=== PATIENT | male | born 1960 | race Caucasian/White ===

== ENCOUNTER 2016-10-26 06:15 | Day surgery (SDC) | payer OTHER ==
[2016-10-26] MEDS ORDERED: ceFAZolin 2 GM/50 ML 50 ML IV ONE (06:42)
[2016-10-26] MEDS ORDERED: LACTATED RINGERS 1,000 ML IV ONE ×3 (07:11→11:28)
[2016-10-26] MEDS ORDERED: BUPIVACAINE 0.5% PF 30 ML VIAL SUBQ ONE (08:30)
--- NOTE | 2016-10-26 10:22 | OPERATIVE REPORT ---
Operative Report - General Procedure Date: 10/26/16 Planned Procedure: Bilateral TEP inguinal herniorrhaphy Pre-Op Diagnosis: Bilateral inguinal hernia Post Op Diagnosis: Bilateral indirect inguinal hernia - Procedure Note Primary Surgeon: Rebecca Secondary Surgeon: Shannon Anesthesia Provider: Conner Rodriguez Anesthesia Technique: General ET tube, Local (30 mL 1/2% marcaine) Estimated Blood Loss (in cc): 5 Drain/Tube Type: negative: Abraham drain, Constavac drain, Hemovac, Lyndon Bronson flat drain, Lyndon Bronson round drain, Lyndon Bronson drain, Lumbar drain, Nephrostomy, [place], Pig tail catheter, Self contained, T-tube, Other Complications: None but fluids = 1300 mL and urine output = 100 mL. - Other Other Information/Narrative: OPERATIVE DESCRIPTION/REPORT: After verbal and written informed consent was obtained detailing the risks of infection, bleeding requiring transfusion with its risks, nerve injury, and , and after I met with the patient confirming the surgery and the site of the surgery, the patient was brought to the operative suite and placed supine on the operating table. Great care was taken to avoid pressure points to prevent pressure necrosis or nerve injury. Monitoring devices were applied along with TEDs and pneumatic compressive stockings (to prevent DVT). The patient received preoperative antibiotics for surgical prophylaxis. Conner Rodriguez sedated and induced general anesthesia and provided anesthesia care for the entirety of the case. The patient was prepped and draped in the usual sterile manner. With the patient draped my initials were clearly visible. A "time in" then confirmed that the paitient was identified with 3 identifiers ( name, date and medical record number), the history and physical was in the chart, the signed consent confirming the procedure was in the chart, the patient was in the correct position, the aforementioned prophylactic measures were in place or given, we had the correct personnel and equipment to complete the procedure and that anesthesia, surgery and nursing were given an opportunity to express any concerns. With the agreement of everyone in the room , we proceeded with the operation. A transverse skin incision was made below and to the left of the umbilicus to a length of approximately 3 cm. The incision was carried through the subcutaneous tissue. Bleeders were cauterized. The right rectus sheath was identified and incised lateral to the midline. The preperitoneal space was then developed following insertion of a Spacemaker balloon, which was inflated under direct vision. The balloon would not inflate fully on the right hand side and in order to get the right side of the balloon to inflate additional pressure was used to the point where the balloon popped but it still did not dissect the right hand side. Following removal of the Spacemaker balloon, a #10 trocar was placed in the preperitoneal space and the preperitoneal space was insufflated with CO2 to a steady state pressure of 15 mmHg. A 10 mm 30 degree laparoscope was inserted in the preperitoneal space. Two #5 trocars were placed in the lower midline under direct vision and without incident. Landmarks including symphysis pubis, right John ligament and left inferior epigastric vessels were identified. Dissection was then continued lateral to the transverse abdominis muscle. The internal ring was then explored for the presence of the indirect hernia sac and this was reduced under direct vision with traction and counter-traction. Exploration of the medial space showed a medial defect suggesting the presence of an early or small direct hernia. A large size Bard 3D mesh (see operative record for Lot# and reference #) was placed in the preperitoneal space and anchored to the symphysis pubis with a tacker. The mesh covered the internal ring as well as the potential direct inguinal hernia site. The right hand side was addressed. Another Spacemaker balloon was placed under direct vision in an effort to dissect the right hand side. Despite this the right hand side was not adequately dissected. In attempting to dissect the right hand side the peritoneum was entered and the pneumoperitoneum was closing my operative site and I placed a Veress needle in the abdomen in order to decompress the pneumoperitoneum. Finally with some traction and counter- traction I was able to see the cord contents and the potential direct hernia site. The indirect sac was reduced and examination did not reveal a direct hernia. A medium size Bard 3D mesh (see operative record for Lot# and reference #) was placed in the preperitoneal space and anchored to the symphysis pubis with a tacker. The mesh covered the internal ring as well as the potential direct inguinal hernia site. I used a medium since the decreased space did not allow for placement of a large. 10 mL of 1/2% Marcaine was injected into the preperitoneal space and then remaining 20 mL at all three incisions. The preperitoneal space was then deflated and during the deflation the mesh was watched to ensure that it was sandwiched nicely in place and did not change position. All trocars were withdrawn. The Veress needle was removed. The defect in the rectus sheath was closed with a [id number] 0 Vicryl suture. The skin incisions were closed with subcuticular 4-0 Monocryl suture. The prep was washed off and Mastisol and Steristrips were applied at all the incisions. At this point a time out was performed that confirmed that all the counts were correct, the procedure that was performed, the blood loss, the IV fluids administered, and the patients condition. The prep was washed off and Benzoin and Steristrips were applied. Having tolerated the procedure well, the patient was subsequently extubated and taken to recovery room in good and stable condition.
[2016-10-26] MEDS ORDERED: fentaNYL 100 MCG/2 ML VIAL ONE (10:53)
[2016-10-26] MEDS ORDERED: oxyCOD/ACETAMIN 5 MG/325 MG TABLET PO ONE (12:23)
[2016-10-26 13:23] VITALS: BP 112/69
== END 2016-10-26 06:16 | disposition home or self-care (01) ==
LOC: SDS 06:15
PROVIDERS: ATTEND Surgery
PROC: 0YUA4JZ Supplement Bilateral Inguinal Region with Synthetic Substitute, Percutaneous Endoscopic Approach (ICD-10-PCS; principal; 2016-10-26 07:30)
DX: K40.20 Bilateral inguinal hernia, without obstruction or gangrene, not specified as recurrent (principal)
CPT/HCPCS: 49650; A9270; C1781; J0690; J7120

== ENCOUNTER 2016-10-27 17:09 | Emergency (ER) | payer OTHER ==
--- NOTE | 2016-10-27 18:44 | ED Physician Documentation ---
PD HPI DYSPNEA - Stated complaint Stated Complaint: SOA/1 DAY POST OP - Chief complaint Chief Complaint: General - History obtained from History obtained from: Patient - History of Present Illness Timing - onset: Yesterday (had hernia repair laparoscopically yesterday here by Dr. Aguilar. had throat soreness and some cough as well as some dysuria last night and into today. Feeling of some dyspnea with cough today. Has swelling left scrotum. Incisions are hurting. No vomiting.) Timing - details: Waxing and waning Associated symptoms: Cough (mild). No: Fever, Palpitations, Bilateral edema Recently seen: Surgery (hernia repair yesterday) Review of Systems Constitutional: denies: Fever, Chills Throat: reports: Sore throat Cardiac: denies: Chest pain / pressure Respiratory: reports: Dyspnea, Cough. denies: Wheezing GI: reports: Abdominal Pain (at incisions and lower abd), Nausea. denies: Vomiting, Hematemesis : reports: Dysuria (some hurting with urination, though better today than yesterday.). denies: Hematuria PD PAST MEDICAL HISTORY - Past Medical History Cardiovascular: None, High cholesterol Respiratory: None Endocrine/Autoimmune: None GI: None, GERD : None HEENT: None Psych: None Musculoskeletal: None Derm: Eczema - Past Surgical History HEENT: Tonsil/Adenoidectomy - Present Medications Home Medications: Ambulatory Orders Medication Instructions Recorded Confirmed Fluticasone [Flonase] 1 sprays EDILSON BID 12/22/12 10/27/16 Simvastatin 20 mg PO DAILY 12/22/12 10/27/16 Omeprazole [PriLOSEC] 20 mg PO DAILY 12/13/13 10/27/16 Flunisolide [Aerospan] 8.9 gm IH DAILY 10/15/16 10/27/16 oxyCODONE/ACET 5/325 [Percocet 5 1 tab PO .FREQ 10/27/16 10/27/16 mg/325 mg] - Allergies Allergies/Adverse Reactions: Allergies Allergy/AdvReac Type Severity Reaction Status Date / Time No Known Drug Allergies Allergy Verified 10/27/16 17:14 PD ED PE NORMAL - Vitals Vital signs reviewed: Yes - General General: Alert and oriented X 3, Well developed/nourished - HEENT HEENT: Moist mucous membranes, Pharynx benign - Neck Neck: Supple, no meningeal sign, No adenopathy - Cardiac Cardiac: RRR, No murmur - Respiratory Respiratory: Clear bilaterally - Abdomen Abdomen: Soft, Non distended, Other (surgical site lower abdomen without redness. ) - Male Male : Other (some swelling left scrotum) - Rectal Rectal: Deferred - Back Back: No CVA TTP - Derm Derm: Normal color, Warm and dry - Extremities Extremities: No edema, No calf tenderness / cord - Neuro Neuro: Alert and oriented X 3, No motor deficit, Normal speech Results - Vitals Vitals: Vital Signs - 24 hr 10/27/16 10/27/16 10/27/16 17:12 18:55 19:41 Temperature 36.6 C 37.2 C Heart Rate 75 70 65 Respiratory 20 18 18 Rate Blood Pressure 154/89 H 151/88 H O2 Saturation 97 96 Oxygen O2 Source Room air PD MEDICAL DECISION MAKING - ED course Complexity details: considered differential (his symptoms seem to relate to operative process - some sore throat and cough from breathing tube, mild dysuria from the armstrong that was in. Lungs are clear. He does feel some better with neb treatment. Has scrotal hematoma and this is hurting him. ), d/w patient Departure - Departure Disposition: 01 Home, Self Care Clinical Impression: Dysuria, Post-op pain Dyspnea Qualifiers: Dyspnea type: shortness of breath Qualified Code(s): R06.02 - Shortness of breath Condition: Stable Record reviewed to determine appropriate education?: Yes Instructions: ED Dyspnea Shortness of Breath Follow-Up: Cami Cook DO [Primary Care Provider] - Alexis Fernandez MD [Provider Admit Priv/Credential] - Comments: Use the Albuterol inhaler 2-3 puffs as needed for dyspnea/cough/congestion. Drink lots of fluids. Pain meds as needed. Recheck if persistent symptoms after couple of days, sooner if other symptoms or worsening. Discharge Date/Time: 10/27/16 19:43
[2016-10-27] MEDS ORDERED: LIDOCAINE VISCOUS 2% 15 ML UDC MM STA (18:46)
[2016-10-27] MEDS ORDERED: MAG HYDROX/AL HYDROX/SIMETH 30 ML UDC PO STA (18:46)
[2016-10-27] MEDS ORDERED: LEVALBUTEROL 1.25 MG INH STA (18:46)
[2016-10-27] MEDS ORDERED: PHENAZOPYRIDINE 100 MG TABLET PO STA (18:47)
[2016-10-27] MEDS ORDERED: MAG HYDROX/AL HYDROX/SIMETH 30 ML UDC ONE (18:50)
[2016-10-27] MEDS ORDERED: PHENAZOPYRIDINE 100 MG TABLET PO ONE (18:50)
[2016-10-27] MEDS ORDERED: LIDOCAINE VISCOUS 2% 15 ML UDC MM ONE (18:50)
[2016-10-27] MEDS ORDERED: LEVALBUTEROL 1.25 MG INH ONE (18:55)
[2016-10-27] MEDS ORDERED: SODIUM CHLORIDE INHALATION 3 ML NEB ONE (18:55)
[2016-10-27] MEDS ORDERED: ALBUTEROL 8 GM INHALER INH STA (19:15)
[2016-10-27] MEDS ORDERED: ALBUTEROL 18 GM INHALER INH ONE (19:18)
[2016-10-27 19:42] VITALS: BP 151/88
== END 2016-10-27 19:43 | disposition home or self-care (01) ==
LOC: ED 17:09
DX: G89.18 Other acute postprocedural pain (principal); R10.30 Lower abdominal pain, unspecified; R06.02 Shortness of breath; R05 Cough; R07.0 Pain in throat; R30.0 Dysuria; S30.22XA Contusion of scrotum and testes, initial encounter; Y83.8 Other surgical procedures as the cause of abnormal reaction of the patient, or of later complication, without mention of misadventure at the time of the procedure
CPT/HCPCS: 94640; 94664; 99282; 99283; A9270

== ENCOUNTER → 2018-03-27 | Outpatient (CLI) | payer OTHER ==
[2018-03-27 19:13] LABS: BASOPHILS # (AUTO) 0.1 10^3/uL (0.0-0.1); BASOPHILS % (AUTO) 1.3 %; EOSINOPHILS # (AUTO) 0.2 10^3/uL (0.0-0.7); EOSINOPHILS % (AUTO) 2.9 %; HGB - HEMOGLOBIN 14.6 g/dL (14.0-18.0); LYMPHOCYTES # (AUTO) 1.7 10^3/uL (1.5-3.5); LYMPHOCYTES % (AUTO) 30.7 %; MEAN CORPUSCULAR HEMOGLOBIN 29.9 pg (27.0-31.0); MEAN CORPUSCULAR HGB CONC 33.6 g/dL (32.0-36.0); MEAN CORPUSCULAR VOLUME 89.1 fL (80.0-94.0); MEAN PLATELET VOLUME 7.7 fL (7.4-11.4); MONOCYTES # (AUTO) 0.5 10^3/uL (0.0-1.0); MONOCYTES % (AUTO) 8.8 %; NEUTROPHILS # (AUTO) 3.2 10^3/uL (1.5-6.6); NEUTROPHILS % (AUTO) 56.3 %; PLT - PLATELET COUNT 277 10^3/uL (130-450); RED BLOOD COUNT 4.88 10^6/uL (4.70-6.10); RED CELL DISTRIBUTION WIDTH 13.8 % (12.0-15.0); WHITE BLOOD COUNT 5.7 x10^3/uL (4.8-10.8)
[2018-03-27 19:36] LABS: ALBUMIN 4.4 g/dL (3.2-5.5); ALBUMIN/GLOBULIN RATIO 1.6 (1.0-2.2); ALKALINE PHOSPHATASE 52 IU/L (42-121); ALT ALANINE AMINOTRANSFERASE 31 IU/L (10-60); AST ASPARTATE AMINOTRANSFERASE 25 IU/L (10-42); BILIRUBIN,TOTAL 0.7 mg/dL (0.2-1.0); BUN - BLOOD UREA NITROGEN 18 mg/dL (6-20); CARBON DIOXIDE - CO2 28 mmol/L (21-32); CHLORIDE 102 mmol/L (101-111); CHOL/HDL RATIO 4.7 (<5.0); CHOLESTEROL 219 mg/dL; CREATININE 0.9 mg/dL (0.6-1.2); GFR - MDRD 87 (>89); GLUCOSE 80 mg/dL (70-100); HDL CHOLESTEROL 47 mg/dL; LDL CHOLESTEROL,CALCULATED 137 mg/dL; LDL/HDL RATIO 2.9 (<3.6); SODIUM 138 mmol/L (135-145); TOTAL PROTEIN 7.2 g/dL (6.7-8.2); VLDL CHOLESTEROL 35 mg/dL
== END ==
LOC: LAB.WCP 11:32
PROVIDERS: ATTEND Family Medicine
DX: E78.5 Hyperlipidemia, unspecified (principal); Z12.5 Encounter for screening for malignant neoplasm of prostate; K21.9 Gastro-esophageal reflux disease without esophagitis
CPT/HCPCS: 36415; 80053; 80061; 83721; 84153; 85025

== ENCOUNTER 2018-10-13 08:00 | Outpatient (CLI) | payer OTHER ==
[2018-10-13 13:40] LABS: CHOL/HDL RATIO 4.1 (<5.0); CHOLESTEROL 194 mg/dL; HDL CHOLESTEROL 47 mg/dL; LDL CHOLESTEROL,CALCULATED 127 mg/dL; LDL/HDL RATIO 2.7 (<3.6); VLDL CHOLESTEROL 20 mg/dL
== END 2018-10-13 08:01 | disposition home or self-care (01) ==
LOC: LAB.WCP 08:00
PROVIDERS: ATTEND Family Medicine
DX: E78.5 Hyperlipidemia, unspecified (principal)
CPT/HCPCS: 36415; 80061; 83721

== ENCOUNTER 2022-02-27 11:08 | Outpatient (CLI) | payer OTHER ==
--- NOTE | 2022-02-27 14:31 | XRAY Report ---
PROCEDURE: Lumbar Spine 2 View INDICATIONS: LOW BACK PAIN,BILAT HAND PX,BILAT HIP PAIN TECHNIQUE: 2 views of the lumbar spine were acquired. COMPARISON: None. FINDINGS: Bones: 5 [id number] vertebrae are present. There is normal bony alignment. No vertebral body compression fractures. No suspicious bony lesions. Soft tissues: Overlying bowel gas pattern is normal. No suspicious soft tissue calcifications. IMPRESSION: Normal lumbar spine radiographs Reviewed by: Marlo Dominguez MD on 02/27/2022 1:30 PM STACIE Approved by: Marlo Dominguez MD on 02/27/2022 1:30 PM STACIE Station ID: [id number]
--- NOTE | 2022-02-27 14:31 | XRAY Report ---
PROCEDURE: Hand 2 View BILAT INDICATIONS: LOW BACK PAIN,BILAT HAND PX,BILAT HIP PAIN TECHNIQUE: 2 views of the hand(s) acquired. COMPARISON: None FINDINGS: Bones: No fractures or dislocations. No suspicious bony lesions. Joint spaces are preserved. There are small marginal erosions noted involving the left second digit DIP, third DIP and right second PIP . Remainder of the osseous structures are within normal limits. Soft tissues: No suspicious soft tissue calcifications. IMPRESSION: Possible inflammatory arthritic changes Reviewed by: Marlo Dominguez MD on 02/27/2022 1:29 PM AKSUSIE Approved by: Marlo Dominguez MD on 02/27/2022 1:29 PM STACIE Station ID: [id number]
--- NOTE | 2022-02-27 14:54 | XRAY Report ---
PROCEDURE: Hips 2V BILAT INDICATIONS: LOW BACK PAIN,BILAT HAND PX,BILAT HIP PAIN TECHNIQUE: 2 views of the hip were acquired. COMPARISON: None FINDINGS: Bones: No fractures or dislocations. No suspicious bony lesions. The visualized pelvic ring appear s intact. Soft tissues: No suspicious soft tissue calcifications or masses. IMPRESSION: Unremarkable bilateral hip radiographs Reviewed by: Marlo Dominguez MD on 02/27/2022 1:53 PM AKDT Approved by: Marlo Dominguez MD on 02/27/2022 1:53 PM AKDT Station ID: [id number]
== END 2022-02-27 11:09 | disposition home or self-care (01) ==
LOC: DI 11:08
PROVIDERS: ATTEND Physician Assistant
DX: M54.59 Other low back pain (principal); M25.551 Pain in right hip; M25.552 Pain in left hip; M79.641 Pain in right hand; M79.642 Pain in left hand

== ENCOUNTER 2023-03-18 09:17 | Day surgery (SDC) | payer OTHER ==
[2023-03-18] MEDS ORDERED: LACTATED RINGERS 1,000 ML IV ONE ×2 (09:26→11:15)
--- NOTE | 2023-03-18 10:05 | ANESTHESIA ---
Pre-Anesthesia VS, & Labs - Diagnosis screening - Procedure screening Vital Signs: Temp Pulse Resp BP Pulse Ox O2 Flow Rate 36.3 C L 70 15 153/92 H 100 03/18/23 09:26 03/18/23 09:26 03/18/23 09:26 03/18/23 09:26 03/18/23 09:26 Height: 6 ft Weight (kg): 79.7 kg Body Mass Index: 23.8 BMI Classification: Normal - NPO >8 hours - Lab Results Lab results reviewed: Yes Home Medications and Allergies Fluticasone [Flonase] 1 sprays EDILSON BID 12/22/12 Simvastatin 20 mg PO DAILY 12/22/12 Omeprazole [PriLOSEC] 20 mg PO DAILY 12/13/13 Flunisolide [Aerospan] 8.9 gm IH DAILY 10/15/16 oxyCODONE/ACET 5/325 [Percocet 5 mg/325 mg] 1 tab PO .FREQ 10/27/16 Allergies/Adverse Reactions: Allergies Allergy/AdvReac Type Severity Reaction Status Date / Time No Known Drug Allergies Allergy Verified 10/27/16 17:14 Anes History & Medical History - Anesthetic History Anesthesia Complications: reports: No previous complications Family history of Anesthesia Complications: Denies Family history of Malignant Hyperthermia: Denies - Medical History Cardiovascular: reports: High cholesterol Pulmonary: reports: None Gastrointestinal: reports: GERD (w/c) Urinary: reports: None Neuro: reports: None Musculoskeletal: reports: None Endocrine/Autoimmune: reports: None Blood Disorders: reports: None Skin: reports: Eczema Smoking Status: Never smoker Psychosocial: reports: No issues indicated - Surgical History General: reports: Other Eyes Ears Nose Throat (EENT): reports: Tonsil/Adenoidectomy Orthopedic: reports: ACL reconstruction Exam General: Alert, Oriented x3, Cooperative Dental: WNL Mouth Openin Fingerbreadth Neck Mobility: Normal Thyromental Distance: 4-6 cm Respiratory: Lungs clear Cardiovascular: Regular rate Plan Anesthesia Type: General, MAC Consent for Procedure(s) Verified and Reviewed: Yes Code Status: Attempt Resuscitation ASA classification: 2-Mild systemic disease Is this case an emergency?: No
[2023-03-18] MEDS ORDERED: PROPOFOL 500 MG/50 ML 500 MG/50 ML VIAL ONE (10:29)
[2023-03-18 11:31] VITALS: O2SAT 99
--- NOTE | 2023-03-18 11:45 | ANESTHESIA POST OP EVALUATION ---
Anesthesia Post Eval - Post Anesthesia Eval Vitals: Last Vital Signs Temp 36.3 C L 03/18/23 11:15 Pulse 71 03/18/23 11:30 Resp 17 03/18/23 11:30 BP 100/71 03/18/23 11:30 Pulse Ox 99 03/18/23 11:30 O2 Flow Rate CV Function Including HR & BP: Stable Pain Control: Satisfactory Nausea & Vomiting: Negative Mental Status: Baseline Respiratory Status: Airway Patent Hydration Status: Satisfactory Anesthesia Complications: None
[2023-03-18 11:58] VITALS: BP 119/85
== END 2023-03-18 09:18 | disposition home or self-care (01) ==
LOC: SDS 09:17
PROVIDERS: ATTEND Surgery
PROC: 0DBP8ZZ Excision of Rectum, Via Natural or Artificial Opening Endoscopic (ICD-10-PCS; principal; 2023-03-18 10:30)
DX: Z12.11 Encounter for screening for malignant neoplasm of colon (principal); K62.1 Rectal polyp; K57.30 Diverticulosis of large intestine without perforation or abscess without bleeding
CPT/HCPCS: 45380; J7120